=== PATIENT | male | born 1935 | race Caucasian/White ===

== ENCOUNTER → 2016-03-16 | Outpatient (CLI) | payer MEDICARE ==
[~2016-03-16] MED LIST: AEROECLIPSE NEB1 DEV; AMLODIPINE BESY1 C17 PO; CARVEDILOL6.25 M1 PO; FEOSOL325 MG PO; GLIMEPIRIDE 4MG4 MG PO; HYDROCHLOROTH12.5 M1 PO; INSULIN GL100 UNITS1 SC; IPRATROPIUM BROM3 ML IH; LISINOPRIL20 MG PO; METFORMIN 500M500 M1 PO; METFORMIN500 MG PO; OMEPRAZOLE40 MG PO; OXYGEN IH; OXYGEN2 IH; PREDNISONE 20MG20 MG PO; PREDNISONE20 MG PO; SYMBICORT1 AE1 IH
--- NOTE | 2016-03-16 14:27 | CARDIOVASCULAR REPORT ---
"Cerebrovascular Exam Indications: 785.9 Bruit. IMPRESSIONS 1. The bilateral vertebral arteries are patent with normal antegrade flow. 2. Study suggests 50-69% stenosis involving the right internal carotid artery and the left internal carotid artery. 3. Very difficult exam, difficult to differentiate Left ICA from ECA. Suggest further testing Carotid duplex study. Complete study and Doppler flow study including spectral analysis, color and weber scale imaging. Height: Height: 172.7cm. Height: 68in. Weight: Weight: 78.9kg. Weight: 173.6lb. Body mass index: BMI: 26.5kg/m^2. Body surface area: BSA: 1.96m^2. Location: Vascular laboratory. Patient status: Outpatient. Tables: Arterial flow: + +--------+--------+ |Location |V sys |V ed | + +--------+--------+ |Right CCA - proximal|89.6cm/s|8.6cm/s | + +--------+--------+ |Right CCA - distal |77.3cm/s|11.3cm/s| + +--------+--------+ |Right ECA |176cm/s |--------| + +--------+--------+ |Right ICA - proximal|115cm/s |14.5cm/s| + +--------+--------+ |Right ICA - mid |134cm/s |22cm/s | + +--------+--------+ |Right ICA - distal |125cm/s |24.4cm/s| + +--------+--------+ |Right vertebral |63.5cm/s|--------| + +--------+--------+ |Left CCA - proximal |99cm/s |8.6cm/s | + +--------+--------+ |Left CCA - distal |72.3cm/s|12.6cm/s| + +--------+--------+ |Left ECA |295cm/s |--------| + +--------+--------+ |Left ICA - proximal |292cm/s |47.7cm/s| + +--------+--------+ |Left ICA - mid |195cm/s |33.3cm/s| + +--------+--------+ |Left ICA - distal |78.9cm/s|23.2cm/s| + +--------+--------+ |Left vertebral |51.2cm/s|--------| + +--------+--------+ Velocity ratios: + + + + + + | |Right, V sys|Right, V ed|Left, V sys|Left, V ed| + + + + + + |Max ICA/dist CCA|1.73 |2.16 |4.04 |3.79 | + + + + + + (Report amended ) Electronically signed by: Lennox Yoo [id number]"
--- NOTE | 2016-03-16 15:53 | RADIOLOGY REPORT PS360 ---
ARTERIAL/TDX-SAGFSLYXLQI-ADK HISTORY: Diabetes with claudication both legs. No rest pain Hypertension. Hyperlipidemia. Prior smoker. COPD. Hypertension. TECHNIQUE: Segmental pressures obtained of both right and left leg. These are compared to brachial blood pressure to yield index at each level sampled including summary ALONDRA. The data sheets from the procedure are available in PACS FINDINGS Rest study only performed today No prior studies available for comparison. Blood pressures reported are in millimeters mercury. RIGHT LEG ALONDRA = 0.6. Brachial BP: 164 Thigh BP: BP 107 index 0.63 Calf BP: BP 108 with index 0.64 Ankle PT: BP 105 with index 0.62 Ankle DP : BP 102 with index 0.6 Digit =BP 77 with index 0.45 LEFT LEG ALONDRA = 0.6 Brachial : BP 170 Thigh BP: BP 110 with index 0.65 Calf BP: BP 100 with index 0.59 Ankle PT:BP 98 with index 0.58 Ankle DP: BP 98 with index 0.58 Digit = 79 with a dextro 0.46 Pulses and waveforms: To diminished pulses and waveforms bilateral ... IMPRESSION:......... Right ALONDRA 0.6. Left ALONDRA 0.6. Diminished pulses & waveforms bilaterally. 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
== END ==
LOC: RT 12:47
DX: I47.1 Supraventricular tachycardia (principal); I20.9 Angina pectoris, unspecified; E11.9 Type 2 diabetes mellitus without complications; I10 Essential (primary) hypertension; E78.5 Hyperlipidemia, unspecified; J44.9 Chronic obstructive pulmonary disease, unspecified; R94.31 Abnormal electrocardiogram [ECG] [EKG]; R09.89 Other specified symptoms and signs involving the circulatory and respiratory systems; R01.1 Cardiac murmur, unspecified